=== PATIENT | female | born 2000 | race Caucasian/White ===

== ENCOUNTER 2023-06-25 22:39 | Emergency (ER) | payer OTHER, SELFPAY ==
[2023-06-25 22:41] VITALS: BP 122/78; PULSE 108; RESP 16; TEMP 36; O2SAT 97
--- NOTE | 2023-06-25 23:28 | EX.ED.DYSGE1 ---
HPI History of Present Illness Chief Complaint: ETOH Intox Detail of Chief Complaint: Altered mental status due to alcohol consumption Informant: patient and friend Onset/Context/Timing Onset: Hours Context: Sudden Onset Timing: Continuous Quality: Inability to ambulate, slurred speech and decreased level of consciousness Location: Not applicable Current Severity: Mild Maximum Severity: Moderate Worsened by: Significant alcohol consumption Relieved by: Nothing Associated Symptoms Associated Symptoms: Slurred speech, inability to ambulate and decreased level of consciousness Narrative Narrative: Patient is a 23-year-old female who was celebrating her 23st birthday. She consumed a large aric. I was corrected and informed it was a jumbo aric. She had several shots of liquor as well. Number vary between 4-6. Patient denies tobacco use. Patient denies drug use. She presently denies headache. She denies ringing or ears decreased hearing. She denies any ocular or visual symptoms. She denies cardiac or respiratory symptoms. She denies abdominal pain. She does endorse nausea. She denies urologic symptoms. She denies paresthesia, anesthesia medics. She states she is able to walk however the nurse and her friend who brought her to the emergency room states that she cannot. Prior similar symptoms: No Recent Illness/Hospitalization: No PFSH PFSH Medical History no medical history no medical history Home Medications NK 06/26/23 [History Last Taken Unknown] Allergy/AdvReac Type Severity Reaction Status Date / Time acetaminophen Allergy Mild Swelling Verified 06/25/23 22:45 Surgical History no surgical history no surgical history Social History (Updated 06/25/23 @ 23:[address] To Jon MD) household members: other Smoking Status: Never smoker substance use type: does not use ROS ROS ED Constitutional Constitutional ED: Denies chills, fever(s), subjective or sweats Eyes Eyes: Denies blurry vision, change in vision or diplopia ENT ENT ED: Denies ear pain, rhinorrhea or sore throat Cardiovascular Cardiovascular: Denies chest pain or palpitations Respiratory/Chest Respiratory/Chest: Denies cough, dyspnea or dyspnea on exertion Gastrointestinal Gastrointestinal: Reports nausea; Denies abdominal pain or vomiting Genitourinary Genitourinary ED: Denies dysuria, hematuria or urinary frequency Musculoskeletal Musculoskeletal: Denies arthralgias, myalgias or neck pain Integumentary Denies rash Neurologic Neurologic: Denies headache(s) or paresthesias Hematologic/Lymphatic Hematologic/Lymphatic: Reports systems reviewed and no addt'l complaints, except as documented EXAM Physical Exam Const Vital Signs: 06/25/23 22:41 06/26/23 00:40 Temperature 96.8 F L Temperature Source Temporal Pulse Rate 108 H 77 Respiratory Rate 16 17 Blood Pressure 122/78 H Blood Pressure Mean 92 Pulse Ox 97 99 Oxygen Delivery Method Room Air Room Air Positive well nourished and well developed Constitutional Narrative: Clinically patient is inebriated. General Appearance ED: well developed and pallor HEENT Reports moist mucous membranes HEENT Narrative: Head is atraumatic and normocephalic. Ears are normal. Nares are patent. Posterior pharynx is normal. Eyes PERRL and EOMs intact bilaterally Eyes Narrative: Patient has nystagmus with looking to the right and left. General Eye ED: Negative for pale conjunctiva or scleral icterus Neck no lymphadenopathy, supple and no JVD Neck Narrative: Trachea is midline. Neck is supple. There is no evidence of trauma. Resp normal respiratory effort and clear to auscultation bilaterally Cardio regular rhythm, S1 normal heart sound, S2 normal heart sound and no murmurs Rate: tachycardic GI normal to inspection, nondistended, normoactive bowel sounds, non-tender, non-distended and no masses; Negative for hepatosplenomegaly Auscultation: hypoactive bowel sounds Palpation: soft Back/Spine no CVA tenderness Thoracic Spine / Upper Back: Negative for thoracic spinal tenderness Lumbar Spine / Lower Back: Negative for lumbar spinal tenderness Extremity normal to inspection General Extremety ED: Negative for edema General Extremity: Negative for edema Neuro oriented x3, CN's II-XII intact bilaterally and no sensory deficits noted Neuro Narrative: Patient is awake but not alert. She has altered balance. Sensorium / Orientation: Negative for alert Psych mental status grossly normal Skin no rashes or lesions noted, no wounds and skin turgor normal General Skin Exam: elasticity normal and pallor; Negative for jaundice MDM MDM MDM Narrative Medical decision making narrative: Clinically patient is intoxicated. Alcohol level was obtained. Presently she is unable to walk and friend is unable to care for her. She was placed on the monitor. IV was established. She will be observed. History & Record Review Additional record(s) reviewed:: No prior records Lab Data Attestation: I reviewed the patient's lab results. Lab results narrative: Alcohol level is elevated at 306. Labs: Laboratory Results - last 24 hr 06/25/23 23:05 Ethyl Alcohol 306.0 H* Treatment and Re-Evaluation :: Patient awoke. She walked to the restroom. She was discharged to home with her friends. Discharge Plan Triage Chief Complaint: ETOH Intox ED Provider: To Jon Dx/Rx/DC Orders Clinical Impression: Acute alteration in mental status, Alcohol intoxication with blood alcohol level greater than 0.3, Coordination problem Instructions: ED Alcohol Intoxication Prescriptions: No Action NK Primary Care Provider: Care Physician,No Primary Referrals: Valencia Argueta MD [Med Staff - Clinical Allergist] - As Needed Care Physician,No Primary [Primary Care Provider] - Disposition Disposition: Home, Self Care
[2023-06-26 00:40] VITALS: PULSE 77; RESP 17; O2SAT 99
[2023-06-26 04:00] VITALS: BP 110/76; PULSE 89; RESP 16; O2SAT 97
== END 2023-06-26 04:12 | disposition home or self-care (01) ==
PROVIDERS: Emergency Provider Emergency Medicine; Visit Provider Emergency Medicine
DX: F10.129 Alcohol abuse with intoxication, unspecified (principal); R47.81 Slurred speech; R26.2 Difficulty in walking, not elsewhere classified; Y90.8 Blood alcohol level of 240 mg/100 ml or more
CPT/HCPCS: 82077; 99284